=== PATIENT | female | born 1955 | race Caucasian/White ===

== ENCOUNTER 2020-11-25 18:04 | Observation (INO) ==
[2020-11-25] MEDS ORDERED: Acetaminophen 325 MG TABLET PO PRN (21:56)
[2020-11-25] MEDS ORDERED: Ondansetron 4 MG/2 ML VIAL IVP PRN (21:56)
[2020-11-25] MEDS ORDERED: Naloxone 0.4 MG/ML INJ IVP PRN (21:56)
[2020-11-25] MEDS ORDERED: Potassium Chloride 40 MEQ, Lidocaine 1% 2 ML in 0.9 % Sodium Chloride 500 ML IVPB ONE (21:59)
[2020-11-26 00:30] LABS: Hematocrit 25.6 % (35.3-44.9); Mean Corpuscular HGB Conc 31.3 g/dL (31.6-35.5); Mean Corpuscular Hemoglobin 30.1 pg (28.0-33.3); Mean Corpuscular Volume 96.2 fL (83.0-100.0); Mean Platelet Volume 9.9 fL (9.4-12.4); Platelet Count 367 K/mcL (140-400); Red Blood Count 2.66 M/mcL (3.82-4.97); Red Cell Distribution Width 18.9 % (11.5-14.5); White Blood Count 9.2 K/mcL (4.3-11.1)
[2020-11-26 05:18] LABS: Basophils # 0.1 K/mcL (0.0-0.2); Basophils % 1.2 %; Eosinophils # 0.3 K/mcL (0.0-0.6); Eosinophils % 3.7 %; Hematocrit 26.1 % (35.3-44.9); Immature Granulocytes % 0.6 % (0-4); Lymphocytes # 0.9 K/mcL (0.6-4.6); Lymphocytes % 10.2 %; Mean Corpuscular HGB Conc 30.7 g/dL (31.6-35.5); Mean Corpuscular Hemoglobin 29.7 pg (28.0-33.3); Mean Platelet Volume 9.9 fL (9.4-12.4); Monocytes # 0.4 K/mcL (0.0-1.3); Monocytes % 4.8 %; Neutrophils # 7.2 K/mcL (1.6-8.9); Platelet Count 377 K/mcL (140-400); Red Blood Count 2.69 M/mcL (3.82-4.97); Red Cell Distribution Width 19.1 % (11.5-14.5); Segmented Neutrophils % 79.5 %; White Blood Count 9.1 K/mcL (4.3-11.1)
[2020-11-26 05:19] LABS: INR 1.4
[2020-11-26] MEDS: Pantoprazole 40 MG VIAL IVP SCH ×2 (05:57→16:34)
[2020-11-26 06:01] LABS: BUN/Creatinine Ratio 7 (6-26); Blood Urea Nitrogen 18 mg/dL (8-23); Calcium 7.5 mg/dL (8.6-10.3); Carbon Dioxide 31 mEq/L (23-29); Chloride 104 mEq/L (98-107); Ferritin 1484 ng/mL (10-120); Glucose 76 mg/dL (70-105); Iron 49 mcg/dL (50-170); Magnesium 1.6 mg/dL (1.6-2.6); Osmolality,Calculated 293 (280-300); Potassium 3.8 mEq/L (3.5-5.1); Sodium 141 mEq/L (136-145); Thyroid Stimulating Hormone 3.453 mcIU/mL (0.340-5.600); Transferrin < 75 mg/dL (203-362); eGFR For African Americans 22 (> 60); eGFR For Non-African Americans 18 (> 60)
[2020-11-26] MEDS ORDERED: *HR* Heparin 10,000 UNIT/10 ML VIAL IV PRN (09:48)
[2020-11-26] MEDS ORDERED: 0.9 % Sodium Chloride 250 ML IVC PRN (09:48)
[2020-11-26] MEDS ORDERED: 0.9 % Sodium Chloride 1,000 ML PRIME SCH (10:00)
[2020-11-26 11:44] LABS: Hematocrit 24.8 % (35.3-44.9); Hemoglobin 7.8 g/dL (11.5-15.4)
[2020-11-26 12:29] LABS: Hepatitis B Surface Antibody < 3.10 mIU/mL
[2020-11-26 12:40] LABS: Hepatitis B Surface Antigen Nonreactive (Nonreactive)
[2020-11-26] MEDS: Calcium Acetate 667 MG CAPSULE PO SCH (16:27)
[2020-11-26] MEDS ORDERED: Dextrose Gel 15 GM/37.5 ML TUBE PO PRN ×2 (16:31)
[2020-11-26] MEDS ORDERED: D5% in Water 1,000 ML IVC PRN (16:31)
[2020-11-26] MEDS ORDERED: *HR* Dextrose 50 % in Water (Vial) 50 ML VIAL IVP PRN (16:31)
[2020-11-26 17:21] LABS: Hematocrit 26.1 % (35.3-44.9); Hemoglobin 8.2 g/dL (11.5-15.4)
[2020-11-26] MEDS ORDERED: *HR* FentaNYL (PF) 100 MCG/2 ML VIAL ONE (17:49)
[2020-11-26] MEDS ORDERED: *HR* Midazolam HCl 5 MG/5 ML VIAL IVP ONE ×2 (17:50→18:15)
[2020-11-26] MEDS ORDERED: *HR* FentaNYL (PF) 100 MCG/2 ML VIAL IVP ONE (18:15)
[2020-11-26] MEDS: Latanoprost 2.5 ML BOTTLE BOTH EYES SCH (21:09)
[2020-11-26] MEDS: Dorzolamide OPTH 10 ML BOTTLE LEFT EYE SCH (21:14)
[2020-11-27 02:08] LABS: Basophils # 0.1 K/mcL (0.0-0.2); Eosinophils # 0.3 K/mcL (0.0-0.6); Hematocrit 23.7 % (35.3-44.9); Hemoglobin 7.7 g/dL (11.5-15.4); Immature Granulocytes % 0.5 % (0-4); Lymphocytes # 1.1 K/mcL (0.6-4.6); Lymphocytes % 12.4 %; Mean Corpuscular HGB Conc 32.5 g/dL (31.6-35.5); Mean Corpuscular Volume 95.6 fL (83.0-100.0); Monocytes # 0.6 K/mcL (0.0-1.3); Monocytes % 6.5 %; Neutrophils # 6.5 K/mcL (1.6-8.9); Platelet Count 341 K/mcL (140-400); Red Blood Count 2.48 M/mcL (3.82-4.97); Red Cell Distribution Width 18.4 % (11.5-14.5); Segmented Neutrophils % 75.6 %; White Blood Count 8.6 K/mcL (4.3-11.1)
[2020-11-27 02:19] LABS: Potassium 3.2 mEq/L (3.5-5.1)
[2020-11-27] MEDS: Pantoprazole 40 MG VIAL IVP SCH ×2 (05:25→17:10)
[2020-11-27] MEDS: Calcium Acetate 667 MG CAPSULE PO SCH ×2 (08:38→17:09)
[2020-11-27] MEDS: Mirtazapine 15 MG TABLET PO SCH (08:38)
[2020-11-27] MEDS: Renal Vitamin 1 CAP CAPSULE PO SCH (08:39)
[2020-11-27] MEDS: Dorzolamide OPTH 10 ML BOTTLE LEFT EYE SCH ×2 (08:39→21:28)
[2020-11-27] MEDS: *HR* Amiodarone 200 MG TABLET PO SCH (08:39)
[2020-11-27] MEDS ORDERED: 0.9 % Sodium Chloride 250 ML ONE (12:04)
[2020-11-27] MEDS ORDERED: 0.9 % Sodium Chloride 500 ML ONE (12:05)
[2020-11-27] MEDS: Latanoprost 2.5 ML BOTTLE BOTH EYES SCH (20:51)
[2020-11-28 04:33] LABS: Basophils # 0.1 K/mcL (0.0-0.2); Basophils % 1.1 %; Eosinophils # 0.2 K/mcL (0.0-0.6); Eosinophils % 2.8 %; Hematocrit 27.2 % (35.3-44.9); Hemoglobin 8.8 g/dL (11.5-15.4); Immature Granulocytes % 0.4 % (0-4); Lymphocytes # 0.8 K/mcL (0.6-4.6); Lymphocytes % 9.9 %; Mean Corpuscular HGB Conc 32.4 g/dL (31.6-35.5); Mean Corpuscular Hemoglobin 30.8 pg (28.0-33.3); Mean Corpuscular Volume 95.1 fL (83.0-100.0); Mean Platelet Volume 10.1 fL (9.4-12.4); Monocytes # 0.5 K/mcL (0.0-1.3); Monocytes % 5.8 %; Neutrophils # 6.8 K/mcL (1.6-8.9); Platelet Count 339 K/mcL (140-400); Red Blood Count 2.86 M/mcL (3.82-4.97); Red Cell Distribution Width 18.2 % (11.5-14.5); White Blood Count 8.5 K/mcL (4.3-11.1)
[2020-11-28 04:52] LABS: Calcium 7.4 mg/dL (8.6-10.3); Potassium 3.7 mEq/L (3.5-5.1)
[2020-11-28] MEDS: Pantoprazole 40 MG VIAL IVP SCH (06:13)
[2020-11-28 07:23] VITALS: BP 119/71; PULSE 71; TEMP 97.6; O2SAT 91
[2020-11-28] MEDS: Mirtazapine 15 MG TABLET PO SCH (08:05)
[2020-11-28] MEDS: Dorzolamide OPTH 10 ML BOTTLE LEFT EYE SCH (08:05)
[2020-11-28] MEDS: Renal Vitamin 1 CAP CAPSULE PO SCH (08:05)
[2020-11-28] MEDS: Calcium Acetate 667 MG CAPSULE PO SCH (08:05)
[2020-11-28] MEDS: *HR* Amiodarone 200 MG TABLET PO SCH (08:05)
== END 2020-11-28 14:21 ==
LOC: 2NENU → SUATTDRO 21:18
PROVIDERS: ADMIT Student in an Organized Health Care Education/Training Program; ATTEND Family Medicine

== ENCOUNTER 2020-12-11 02:03 | Inpatient (IN) ==
[2020-12-11] MEDS ORDERED: Naloxone 0.4 MG/ML INJ IVP PRN (04:51)
[2020-12-11] MEDS ORDERED: Acetaminophen 325 MG TABLET PO PRN (04:51)
[2020-12-11] MEDS ORDERED: Ondansetron ODT 4 MG TAB.RAPDIS SL PRN (04:51)
[2020-12-11] MEDS ORDERED: Pantoprazole 80 MG in 0.9 % Sodium Chloride 50 ML IVPB ONE (04:54)
[2020-12-11] MEDS ORDERED: Pantoprazole 40 MG VIAL IVP SCH (06:00)
[2020-12-11] MEDS ORDERED: Vancomycin 1,500 MG/265 ML IV.SOLN IVPB ONE (07:00)
[2020-12-11] MEDS: Piperacillin/Tazobactam 3.375 GM in 0.9 % Sodium Chloride Mini Bag 100 ML IVPB SCH ×2 (08:56→20:08)
[2020-12-11 09:05] LABS: Basophils # 0.1 K/mcL (0.0-0.2); Basophils % 1.7 %; Eosinophils # 0.4 K/mcL (0.0-0.6); Eosinophils % 6.3 %; Hematocrit 26.2 % (35.3-44.9); Hemoglobin 8.4 g/dL (11.5-15.4); Immature Granulocytes % 0.6 % (0-4); Lymphocytes # 1.1 K/mcL (0.6-4.6); Lymphocytes % 16.6 %; Mean Corpuscular HGB Conc 32.1 g/dL (31.6-35.5); Mean Corpuscular Hemoglobin 31.2 pg (28.0-33.3); Mean Corpuscular Volume 97.4 fL (83.0-100.0); Mean Platelet Volume 10.6 fL (9.4-12.4); Monocytes # 0.6 K/mcL (0.0-1.3); Monocytes % 8.9 %; Neutrophils # 4.2 K/mcL (1.6-8.9); Platelet Count 206 K/mcL (140-400); Red Blood Count 2.69 M/mcL (3.82-4.97); Red Cell Distribution Width 17.5 % (11.5-14.5); Segmented Neutrophils % 65.9 %; White Blood Count 6.4 K/mcL (4.3-11.1)
[2020-12-11] MEDS ORDERED: Lidocaine -MPF 2% 2 ML VIAL ONE (09:18)
[2020-12-11] MEDS ORDERED: *HR* Propofol 200 MG/20 ML VIAL IVP ONE (09:18)
[2020-12-11 09:25] LABS: Albumin 1.5 g/dL (3.5-5.7); Albumin/Globulin Ratio 0.5 (1.1-2.2); Bilirubin,Direct 0.1 mg/dL (0.0-0.2); Bilirubin,Indirect 0.4 mg/dL (0.0-1.0); Bilirubin,Total 0.5 mg/dL (0.3-1.0); Calcium 7.2 mg/dL (8.6-10.3); Globulin 2.8 g/dL (2.4-3.5); Magnesium 1.5 mg/dL (1.6-2.6); Phosphorous 1.7 mg/dL (2.7-4.5); Potassium 3.2 mEq/L (3.5-5.1); Total Protein 4.3 g/dL (6.4-8.9)
[2020-12-11 09:37] LABS: Thyroid Stimulating Hormone 2.247 mcIU/mL (0.340-5.600)
[2020-12-11] MEDS ORDERED: *HR* Etomidate 40 MG/20 ML VIAL IVP ONE (09:43)
[2020-12-11] MEDS ORDERED: Albumin 25% 25gram/100mL 25 GM/100 ML IV.SOLN IVPB ONE (10:36)
[2020-12-11] MEDS ORDERED: 0.9 % Sodium Chloride 500 ML IVC ONE (12:50)
[2020-12-11] MEDS ORDERED: 0.9 % Sodium Chloride 250 ML IVC ONE (12:50)
[2020-12-11] MEDS ORDERED: MIDODRINE HCL 2.5 MG PO PRN (12:57)
[2020-12-11] MEDS ORDERED: Perflutren Lipid Microsphere 1.3 ML in 0.9 % Sodium Chloride 8.7 ML IVP PRN (15:10)
[2020-12-11] MEDS ORDERED: Calcium Acetate 667 MG CAPSULE PO SCH (17:00)
[2020-12-11] MEDS: Dorzolamide OPTH 10 ML BOTTLE LEFT EYE SCH (20:08)
[2020-12-11] MEDS: Latanoprost 2.5 ML BOTTLE LEFT EYE SCH (20:08)
[2020-12-12 03:36] LABS: Basophils # 0.1 K/mcL (0.0-0.2); Basophils % 0.7 %; Eosinophils # 0.5 K/mcL (0.0-0.6); Eosinophils % 7.2 %; Hematocrit 22.1 % (35.3-44.9); Hemoglobin 7.4 g/dL (11.5-15.4); Immature Granulocytes % 0.6 % (0-4); Lymphocytes # 1.1 K/mcL (0.6-4.6); Lymphocytes % 15.5 %; Mean Corpuscular HGB Conc 33.5 g/dL (31.6-35.5); Mean Corpuscular Hemoglobin 32.7 pg (28.0-33.3); Mean Corpuscular Volume 97.8 fL (83.0-100.0); Mean Platelet Volume 10.8 fL (9.4-12.4); Monocytes # 0.7 K/mcL (0.0-1.3); Monocytes % 9.4 %; Neutrophils # 4.6 K/mcL (1.6-8.9); Platelet Count 182 K/mcL (140-400); Red Blood Count 2.26 M/mcL (3.82-4.97); Segmented Neutrophils % 66.6 %
[2020-12-12 03:53] LABS: Magnesium 1.8 mg/dL (1.6-2.6); Phosphorous 1.8 mg/dL (2.7-4.5); Potassium 3.6 mEq/L (3.5-5.1)
[2020-12-12] MEDS: Mirtazapine 15 MG TABLET PO SCH (09:03)
[2020-12-12] MEDS: *HR* Amiodarone 200 MG TABLET PO SCH (09:03)
[2020-12-12] MEDS: Piperacillin/Tazobactam 3.375 GM in 0.9 % Sodium Chloride Mini Bag 100 ML IVPB SCH ×2 (09:04→19:53)
[2020-12-12] MEDS: Dorzolamide OPTH 10 ML BOTTLE LEFT EYE SCH ×2 (09:05→21:00)
[2020-12-12] MEDS: Latanoprost 2.5 ML BOTTLE LEFT EYE SCH (21:00)
[2020-12-13 03:35] LABS: Basophils % 0.4 %; Eosinophils # 0.5 K/mcL (0.0-0.6); Eosinophils % 6.5 %; Hematocrit 23.1 % (35.3-44.9); Hemoglobin 7.5 g/dL (11.5-15.4); Immature Granulocytes % 0.4 % (0-4); Lymphocytes % 12.8 %; Mean Corpuscular HGB Conc 32.5 g/dL (31.6-35.5); Mean Corpuscular Hemoglobin 32.1 pg (28.0-33.3); Mean Corpuscular Volume 98.7 fL (83.0-100.0); Mean Platelet Volume 10.8 fL (9.4-12.4); Monocytes # 0.7 K/mcL (0.0-1.3); Monocytes % 8.9 %; Neutrophils # 5.7 K/mcL (1.6-8.9); Platelet Count 179 K/mcL (140-400); Red Blood Count 2.34 M/mcL (3.82-4.97)
[2020-12-13 03:52] LABS: Calcium 6.9 mg/dL (8.6-10.3); Magnesium 1.7 mg/dL (1.6-2.6); Phosphorous 2.2 mg/dL (2.7-4.5)
[2020-12-13] MEDS ORDERED: 0.9 % Sodium Chloride 250 ML IVC PRN (07:47)
[2020-12-13] MEDS ORDERED: *HR* Heparin 10,000 UNIT/10 ML VIAL IV PRN (07:47)
[2020-12-13] MEDS ORDERED: 0.9 % Sodium Chloride 1,000 ML PRIME SCH (08:00)
[2020-12-13] MEDS: Mirtazapine 15 MG TABLET PO SCH (08:39)
[2020-12-13] MEDS: *HR* Amiodarone 200 MG TABLET PO SCH (08:39)
[2020-12-13] MEDS: Piperacillin/Tazobactam 3.375 GM in 0.9 % Sodium Chloride Mini Bag 100 ML IVPB SCH ×2 (08:40→20:31)
[2020-12-13] MEDS: Dorzolamide OPTH 10 ML BOTTLE LEFT EYE SCH ×2 (08:48→20:32)
[2020-12-13] MEDS ORDERED: Calcium Gluconate 1gm/50mL 1 GM/50 ML BAG IVPB ONE (08:51)
[2020-12-13] MEDS: Latanoprost 2.5 ML BOTTLE LEFT EYE SCH (20:33)
[2020-12-14 00:44] LABS: Basophils % 0.5 %; Eosinophils # 0.3 K/mcL (0.0-0.6); Eosinophils % 3.6 %; Hematocrit 23.5 % (35.3-44.9); Hemoglobin 7.8 g/dL (11.5-15.4); Immature Granulocytes % 0.4 % (0-4); Lymphocytes # 1.2 K/mcL (0.6-4.6); Lymphocytes % 15.2 %; Mean Corpuscular HGB Conc 33.2 g/dL (31.6-35.5); Mean Corpuscular Volume 96.3 fL (83.0-100.0); Mean Platelet Volume 10.6 fL (9.4-12.4); Monocytes # 0.6 K/mcL (0.0-1.3); Monocytes % 7.7 %; Neutrophils # 5.7 K/mcL (1.6-8.9); Platelet Count 180 K/mcL (140-400); Red Blood Count 2.44 M/mcL (3.82-4.97); Red Cell Distribution Width 17.9 % (11.5-14.5); Segmented Neutrophils % 72.6 %; White Blood Count 7.8 K/mcL (4.3-11.1)
[2020-12-14 00:45] LABS: VBG Ionized Calcium 1.01 mmol/L (1.15-1.35)
[2020-12-14 01:01] LABS: Calcium 6.7 mg/dL (8.6-10.3); Magnesium 1.6 mg/dL (1.6-2.6); Phosphorous 1.6 mg/dL (2.7-4.5); Potassium 3.7 mEq/L (3.5-5.1)
[2020-12-14] MEDS ORDERED: HydrOXYzine SYP 10 MG/5 ML UDC PO PRN (07:42)
[2020-12-14] MEDS ORDERED: Calcium Gluconate 1gm/50mL 1 GM/50 ML BAG IVPB ONE (07:45)
[2020-12-14] MEDS ORDERED: NON-FORMULARY MEDICATION 1 EACH EACH (Pantoprazole Sodium 40 MG Tablet.Dr) PO SCH (09:00)
[2020-12-14] MEDS ORDERED: NON-FORMULARY MEDICATION 1 EACH EACH (Brimonidine Tartrate/Timolol [Combigan 0.2%-0.5% Eye BOTH EYES SCH (09:00)
[2020-12-14] MEDS: Calcium Gluconate 1gm/50mL 1 GM/50 ML BAG IVPB ONE ×2 (09:25→10:22)
[2020-12-14] MEDS: Mirtazapine 15 MG TABLET PO SCH (09:25)
[2020-12-14] MEDS: Renal Vitamin 1 CAP CAPSULE PO SCH (09:26)
[2020-12-14] MEDS: miSOPROStoL 100 MCG TABLET PO SCH ×4 (09:26→20:53)
[2020-12-14] MEDS: Ascorbic Acid 500 MG TABLET PO SCH (09:26)
[2020-12-14] MEDS: *HR* Amiodarone 200 MG TABLET PO SCH (09:26)
[2020-12-14] MEDS: Piperacillin/Tazobactam 3.375 GM in 0.9 % Sodium Chloride Mini Bag 100 ML IVPB SCH ×2 (09:34→21:00)
[2020-12-14] MEDS: Dorzolamide OPTH 10 ML BOTTLE LEFT EYE SCH ×2 (09:36→20:54)
[2020-12-14] MEDS: Latanoprost 2.5 ML BOTTLE LEFT EYE SCH (20:54)
[2020-12-15 03:17] LABS: Basophils % 0.4 %; Eosinophils # 0.2 K/mcL (0.0-0.6); Eosinophils % 1.6 %; Hemoglobin 7.8 g/dL (11.5-15.4); Immature Granulocytes % 0.6 % (0-4); Lymphocytes # 1.5 K/mcL (0.6-4.6); Lymphocytes % 16.3 %; Mean Corpuscular HGB Conc 31.2 g/dL (31.6-35.5); Mean Corpuscular Hemoglobin 30.4 pg (28.0-33.3); Mean Corpuscular Volume 97.3 fL (83.0-100.0); Mean Platelet Volume 11.2 fL (9.4-12.4); Monocytes # 0.6 K/mcL (0.0-1.3); Monocytes % 6.9 %; Neutrophils # 6.9 K/mcL (1.6-8.9); Platelet Count 213 K/mcL (140-400); Red Blood Count 2.57 M/mcL (3.82-4.97); Red Cell Distribution Width 18.5 % (11.5-14.5); Segmented Neutrophils % 74.2 %; White Blood Count 9.3 K/mcL (4.3-11.1)
[2020-12-15 03:34] LABS: Calcium 6.9 mg/dL (8.6-10.3); Magnesium 1.6 mg/dL (1.6-2.6); Phosphorous 1.8 mg/dL (2.7-4.5); Potassium 3.5 mEq/L (3.5-5.1)
[2020-12-15] MEDS: Piperacillin/Tazobactam 3.375 GM in 0.9 % Sodium Chloride Mini Bag 100 ML IVPB SCH (07:38)
[2020-12-15] MEDS: Ascorbic Acid 500 MG TABLET PO SCH (07:40)
[2020-12-15] MEDS: miSOPROStoL 100 MCG TABLET PO SCH ×3 (07:40→16:39)
[2020-12-15] MEDS: Mirtazapine 15 MG TABLET PO SCH (07:41)
[2020-12-15] MEDS: Renal Vitamin 1 CAP CAPSULE PO SCH (07:42)
[2020-12-15] MEDS: Dorzolamide OPTH 10 ML BOTTLE LEFT EYE SCH (07:42)
[2020-12-15] MEDS: *HR* Amiodarone 200 MG TABLET PO SCH (07:42)
[2020-12-15] MEDS ORDERED: *HR* Heparin 10,000 UNIT/10 ML VIAL IV PRN (08:41)
[2020-12-15] MEDS ORDERED: 0.9 % Sodium Chloride 250 ML IVC PRN (08:41)
[2020-12-15 15:32] VITALS: PULSE 77; O2SAT 100
[2020-12-15 19:33] VITALS: BP 123/79; TEMP 98.5
== END 2020-12-15 20:27 | DRG 377 ==
LOC: 2ANU → SUATTDRO 12-13 08:25
PROVIDERS: ADMIT Student in an Organized Health Care Education/Training Program; ATTEND Internal Medicine
PROC: ENDOEBX (2020-12-11 10:00)

== ENCOUNTER 2020-12-30 21:05 | Inpatient (IN) ==
[2020-12-30] MEDS ORDERED: 0.9 % Sodium Chloride 1,000 ML IVC ONE (21:19)
[2020-12-30] MEDS ORDERED: cefTRIAXone 1,000 MG in Water for inj. (sterile) 10 ML IVP ONE (21:20)
[2020-12-30 22:03] LABS: Basophils % 0.1 %; Hematocrit 25.1 % (35.3-44.9); Hemoglobin 8.7 g/dL (11.5-15.4); Immature Granulocytes % 1.2 % (0-4); Lymphocytes # 1.2 K/mcL (0.6-4.6); Lymphocytes % 8.6 %; Mean Corpuscular HGB Conc 34.7 g/dL (31.6-35.5); Mean Platelet Volume 12.5 fL (9.4-12.4); Monocytes # 0.3 K/mcL (0.0-1.3); Monocytes % 2.4 %; Neutrophils # 11.9 K/mcL (1.6-8.9); Platelet Count 198 K/mcL (140-400); Red Blood Count 2.81 M/mcL (3.82-4.97); Red Cell Distribution Width 18.5 % (11.5-14.5); Segmented Neutrophils % 87.7 %; White Blood Count 13.6 K/mcL (4.3-11.1)
[2020-12-30 22:15] LABS: Bilirubin,Urine Small (Negative); Blood,Urine Small (Negative); Clarity,Urine Turbid (Clear); Glucose,Urine (UA) Normal (Normal); Ketones,Urine Negative (Negative); Leukocyte Esterase,Urine Large (Negative); Nitrite,Urine Negative (Negative); Protein,Urine 50 mg/dL (Neg-Trace); Specific Gravity,Urine 1.022 (1.010-1.025); Urobilinogen,Urine Normal (Normal)
[2020-12-30 22:20] LABS: Color,Urine LIGHT BROWN (Yellow)
[2020-12-30 22:21] LABS: Squamous Epithelial Cell,Urine Few per hpf (None-Few); WBC,Urine TNTC per hpf (0-3)
[2020-12-30 22:22] LABS: Amphetamine Screen,Urine Negative ng/mL (Cutoff=1000); Barbiturate Screen,Urine Negative ng/mL (Cutoff=200); Benzodiazepines Screen,Urine Negative ng/mL (Cutoff=200); Cannabinoid Screen,Urine Negative ng/mL (Cutoff = 50); Cocaine Screen,Urine Negative ng/mL (Cutoff= 300); Opiate Screen,Urine Negative ng/mL (Cutoff=300); Phencyclidine Screen,Urine Negative ng/mL (Cutoff=25)
[2020-12-30 22:27] LABS: ABG Base Excess 1 mEq/L (-2 to 3); ABG HCO3 24 mEq/L (21-27); ABG Oxygen Saturation 99 % (95-98); ABG PCO2 30 mmHg (35-45); ABG PH 7.51 pH Units (7.32-7.45); ABG PO2 110 mmHg (85-104); ABG TCO2 25 mEq/L (20-26)
[2020-12-30 22:30] LABS: Mean Corpuscular Volume 89.3 fL (83.0-100.0)
[2020-12-30] MEDS ORDERED: Isovue-370 500 ML BOTTLE IVP ONE (22:54)
[2020-12-30] MEDS ORDERED: 0.9 % Sodium Chloride 500 ML IVC ONE (22:54)
[2020-12-30 23:12] LABS: Alanine Aminotransferase 15 Units/L (7-52); Albumin 1.5 g/dL (3.5-5.7); Albumin/Globulin Ratio 0.5 (1.1-2.2); Alkaline Phosphatase 98 Units/L (34-104); Aspartate Amino Transferase 20 Units/L (13-39); BUN/Creatinine Ratio 6 (6-26); Bilirubin,Direct 0.2 mg/dL (0.0-0.2); Bilirubin,Indirect 0.3 mg/dL (0.0-1.0); Bilirubin,Total 0.5 mg/dL (0.3-1.0); Blood Urea Nitrogen 14 mg/dL (8-23); Calcium 7.6 mg/dL (8.6-10.3); Carbon Dioxide 24 mEq/L (23-29); Chloride 103 mEq/L (98-107); Creatine Kinase 104 Units/L (30-223); Ethanol < 10 mg/dL (Less than 10); Globulin 3.2 g/dL (2.4-3.5); Glucose 121 mg/dL (70-105); Osmolality,Calculated 288 (280-300); Potassium 3.7 mEq/L (3.5-5.1); Sodium 138 mEq/L (136-145); Thyroid Stimulating Hormone 1.401 mcIU/mL (0.340-5.600); Total Protein 4.7 g/dL (6.4-8.9); eGFR For African Americans 23 (> 60); eGFR For Non-African Americans 19 (> 60)
[2020-12-30 23:36] LABS: Troponin I 0.05 ng/mL (< 0.04)
[2020-12-30 23:45] LABS: INR 1.2; Prothrombin Time 14.1 Seconds (9.4-12.1)
[2020-12-30 23:47] LABS: Activated Partial Thrombo Time 33.1 Seconds (26.0-36.0)
[2020-12-31] MEDS: Calcium Gluconate 1gm/50mL 1 GM/50 ML BAG IVPB SCH ×2 (00:28→01:16)
[2020-12-31] MEDS: Norepinephrine 4 MG/254 ML IV.SOLN IVC SCH ×3 (00:45→14:26)
[2020-12-31] MEDS ORDERED: Hydrocortisone Sodium Succ 100 MG/2 ML VIAL IVP ONE (01:24)
[2020-12-31] MEDS ORDERED: Vasopressin 40 UNIT in D5% in Water 100 ML IVC SCH (05:15)
[2020-12-31] MEDS ORDERED: Albumin 25% 25gram/100mL 25 GM/100 ML IV.SOLN IVPB ONE (05:31)
[2020-12-31] MEDS ORDERED: 0.9 % Sodium Chloride 250 ML IVC ONE ×3 (06:31→09:03)
[2020-12-31] MEDS ORDERED: Vancomycin 2,000 MG/520 ML IV.SOLN IVPB ONE (06:36)
[2020-12-31] MEDS ORDERED: Meropenem 500 MG in 0.9 % Sodium Chloride Mini Bag 100 ML IVPB STA (06:37)
[2020-12-31] MEDS ORDERED: Naloxone 0.4 MG/ML INJ IVP PRN (09:28)
[2020-12-31] MEDS ORDERED: Perflutren Lipid Microsphere 1.3 ML in 0.9 % Sodium Chloride 8.7 ML IVP PRN (09:28)
[2020-12-31] MEDS ORDERED: Albumin Human 5% 12.5 GM/250 ML IV.SOLN IVC SCH (09:30)
[2020-12-31 09:58] LABS: ABG Base Excess -1 mEq/L (-2 to 3); ABG HCO3 22 mEq/L (21-27); ABG Oxygen Saturation 97 % (95-98); ABG PCO2 28 mmHg (35-45); ABG PH 7.51 pH Units (7.32-7.45); ABG PO2 83 mmHg (85-104); ABG TCO2 23 mEq/L (20-26)
[2020-12-31] MEDS: Phenylephrine 10 MG in 0.9 % Sodium Chloride 250 ML IVC SCH ×3 (10:21→14:20)
[2020-12-31] MEDS ORDERED: Albumin 25% 25gram/100mL 25 GM/100 ML IV.SOLN ONE (10:31)
[2020-12-31 12:08] LABS: Hepatitis B Surface Antibody < 3.10 mIU/mL
[2020-12-31 12:19] LABS: Hepatitis B Surface Antigen Nonreactive (Nonreactive)
[2020-12-31] MEDS: Albumin Human 5% 12.5 GM/250 ML IV.SOLN IVC SCH ×2 (14:59→15:39)
[2020-12-31] MEDS ORDERED: Phenylephrine 50 MG in 0.9 % Sodium Chloride 250 ML IVC SCH (15:15)
[2020-12-31 15:30] VITALS: TEMP 98.7
[2020-12-31] MEDS ORDERED: *HR* Heparin 5,000 UNIT/ML VIAL SQ SCH (16:00)
[2020-12-31] MEDS ORDERED: Meropenem 500 MG in 0.9 % Sodium Chloride Mini Bag 100 ML IVPB SCH (18:00)
[2020-12-31 19:05] VITALS: BP 90/45; PULSE 96; O2SAT 99
[2020-12-31] MEDS ORDERED: Meropenem 1,000 MG in Water for inj. (sterile) 20 ML IVP SCH (21:00)
== END 2020-12-31 19:28 | disposition short-term general hospital (02) | DRG 871 ==
LOC: ICNU 21:05 → EMEROOARM 21:05 → ICNU 12-31 11:48
PROVIDERS: ADMIT Pediatrics; ATTEND Pediatrics